=== PATIENT | female | born 1965 | race Hispanic/Latino ===

== ENCOUNTER 2019-09-15 04:32 | Emergency (ER) | payer SELFPAY ==
[~2019-09-15] VITALS: Ht 160 cm; Wt 78.9 kg
--- NOTE | 2019-09-15 05:00 | NUR ---
FORENSIC NURSE NOTIFIED
--- NOTE | 2019-09-15 05:20 | NUR ---
[place] [facility] AT [facility] BS
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
--- NOTE | 2019-09-15 06:40 | NUR ---
FORENSIC NURSE AT PTS BEDSIDE
[2019-09-15] MEDS ORDERED: IBUPROFEN 600 MG TAB PO NR (10:00)
[2019-09-15] MEDS ORDERED: AZITHROMYCIN 250 MG TAB PO ONE (10:15)
[2019-09-15] MEDS ORDERED: ONDANSETRON HCL 4 MG ORAL DISINTEGRATING TAB PO NR (10:15)
[2019-09-15] MEDS ORDERED: CEFTRIAXONE SOD 250 MG VIAL IM ONE (10:15)
--- NOTE | 2019-09-15 11:27 | NUR ---
ALL CARE BY [facility].
--- NOTE | 2019-09-15 11:34 | NUR ---
NOTIFIED [facility] OF NEED FOR CAB RIDE.
--- NOTE | 2019-09-15 11:35 | NUR ---
PT DENIES [employer] CONTRACT FOR SAFETY AND WANTS TO GO HOME TO BE WITH HER DAUGHTER. [id number] [facility] [id number]
== END 2019-09-15 12:23 | disposition home or self-care (01) ==
LOC: ER 04:32
DX: T74.51XA Adult forced sexual exploitation, confirmed, initial encounter (principal); E11.9 Type 2 diabetes mellitus without complications
CPT/HCPCS: 99284; J0696; Q0162